=== PATIENT | female | born 1990 | race Caucasian/White ===

== ENCOUNTER 2018-04-12 17:31 | Emergency (ER) | payer SELFPAY ==
[~2018-04-12] VITALS: Ht 165.1 cm; Wt 55.8 kg
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
[2018-04-12] MEDS ORDERED: HYDROCODONE/APAP 5/325MG 1 EACH TABLET PO ONE (18:30)
[2018-04-12] MEDS ORDERED: TDAP [DIPH/PERTUSSIS/TET] 0.5 ML VIAL IM ONE ×2 (18:30→18:33)
[2018-04-12] MEDS ORDERED: HYDROCODONE/APAP 5/325MG 1 EACH TABLET ONE (18:33)
--- NOTE | 2018-04-12 18:39 | NUR ---
MEDICATED PATIENT PER MD ORDERS.
--- NOTE | 2018-04-12 18:42 | NUR ---
[facility] RN HOSPICE AT BEDSIDE
--- NOTE | 2018-04-12 19:11 | NUR ---
REPORT GIVEN TO JAMEL STUART FOR PRECIOUS.
--- NOTE | 2018-04-12 19:35 | NUR ---
Patient discharged to home in stable condition. Written and verbal after care instructions given. Patient verbalizes understanding of instruction. AMBULATED WITH STEADY GAIT. JOSE. SHAN
[2018-04-12 19:38] VITALS: BP 128/76
== END 2018-04-12 19:38 | disposition home or self-care (01) ==
LOC: ER 17:33
DX: S61.210A Laceration without foreign body of right index finger without damage to nail, initial encounter (principal); W31.89XA Contact with other specified machinery, initial encounter; Y93.89 Activity, other specified; Y92.090 Kitchen in other non-institutional residence as the place of occurrence of the external cause; Y99.8 Other external cause status
CPT/HCPCS: 12001; 73140; 90471; 90715; 99284; A4606; A6403; Z7610